=== PATIENT | male | born 1985 | race African-American/Black ===

== ENCOUNTER 2017-09-23 20:41 | Emergency (ER) | payer BC, SELFPAY ==
[2017-09-23] MEDS ORDERED: Dexamethasone 4 MG TAB ONE (20:59)
[2017-09-23] MEDS ORDERED: AMOXicillin 250 MG CAP ONE (20:59)
[2017-09-23] MEDS ORDERED: diphenhydrAMINE 12.5 MG/5 ML UDCUP ONE (20:59)
[2017-09-23] MEDS ORDERED: Neomycin-Polymyxin-Hc 7.5 ML BOT ONE (20:59)
[2017-09-23] MEDS ORDERED: Neomycin/Polymyxin/HC Otic Solution 10 ML BOT ONE (21:02)
== END 2017-09-23 21:10 | disposition home or self-care (01) ==
LOC: MADERS 20:41
DX: L50.0 Allergic urticaria (principal); H60.11 Cellulitis of right external ear; F17.210 Nicotine dependence, cigarettes, uncomplicated
CPT/HCPCS: 99283; J8540

== ENCOUNTER 2019-01-13 08:07 | Emergency (ER) | payer BC, SELFPAY ==
[2019-01-13] MEDS ORDERED: Ondansetron ODT 4 MG TAB ONE (08:16)
== END 2019-01-13 08:30 | disposition home or self-care (01) ==
LOC: MADERS 08:07
DX: R11.2 Nausea with vomiting, unspecified (principal); R19.7 Diarrhea, unspecified; Z87.891 Personal history of nicotine dependence
CPT/HCPCS: 99283; Q0162

== ENCOUNTER 2020-12-27 14:11 | Emergency (ER) | payer SELFPAY | END 2020-12-27 16:46 | disposition home or self-care (01) | LOC: MADERS 14:11 | DX: K64.8 Other hemorrhoids (principal); Z87.891 Personal history of nicotine dependence | CPT/HCPCS: 99283 ==

== ENCOUNTER 2022-03-14 10:01 | Emergency (ER) | payer SELFPAY ==
[2022-03-14] MEDS ORDERED: Ibuprofen 600 MG TAB ONE (10:48)
[2022-03-14] MEDS ORDERED: Dexamethasone 4 MG TAB ONE (10:48)
[2022-03-14] MEDS ORDERED: Lidocaine 5% Patch TD SCH (12:00)
[2022-03-14] MEDS ORDERED: Transdermal Patch Removal TOP SCH (23:59)
== END 2022-03-14 12:06 | disposition home or self-care (01) ==
LOC: MADERS 10:01
DX: M54.50 Low back pain, unspecified (principal); Z87.891 Personal history of nicotine dependence
CPT/HCPCS: 72100; J8540